=== PATIENT | male | born 1955 | race Caucasian/White ===

== ENCOUNTER 2018-07-22 11:28 | Emergency (ER) | payer OTHER ==
[~2018-07-22] VITALS: Ht 172.7 cm; Wt 81.6 kg
== END 2018-07-22 12:38 | disposition home or self-care (01) ==
LOC: ER 11:28
DX: M54.89 Other dorsalgia (principal); R05 Cough

== ENCOUNTER 2024-11-27 20:42 | Emergency (ER) | payer OTHER ==
[~2024-11-27] VITALS: Ht 172.7 cm; Wt 90.7 kg
[2024-11-27] MEDS ORDERED: CEFTRIAXONE SODIUM 1,000 MG VIAL IM STA (21:39)
[2024-11-27] MEDS ORDERED: KETOROLAC TROMETHAMINE 30 MG VIAL IM STA (21:41)
[2024-11-27] MEDS ORDERED: CEFTRIAXONE SODIUM 1,000 MG VIAL ONE (21:55)
[2024-11-27] MEDS ORDERED: KETOROLAC TROMETHAMINE 30 MG VIAL ONE (21:55)
[2024-11-27] MEDS ORDERED: HYOSCYAMINE SULFATE 0.125 MG TAB.SUBL ONE (21:59)
[2024-11-27 22:32] LABS: HEMATOCRIT 43.9 % (39.0-48.0); HEMOGLOBIN 15.4 g/dL (13-16.00); MEAN CELL VOLUME 90.9 fL (80.0-100.00); MEAN CORPUSCULAR HEMOGLOBIN 31.8 pg (27.00-32.0); PLATELET COUNT 135 K/uL (150-450); RED BLOOD COUNT 4.83 M/uL (4.00-6.00); RED CELL DISTRIBUTION WIDTH 13.5 % (11.5-14.5)
== END 2024-11-27 23:21 | disposition home or self-care (01) ==
LOC: ER 20:45
PROVIDERS: General Practice
DX: J06.9 Acute upper respiratory infection, unspecified (principal); Z20.822 Contact with and (suspected) exposure to COVID-19
CPT/HCPCS: 36415; 71046; 96372; 99283; J0696; J1885